=== PATIENT | female | born 1960 | race Caucasian/White ===

== ENCOUNTER 2022-01-03 12:08 | Emergency (ER) | payer BC, SELFPAY ==
--- NOTE | ~2022-01-03 | XR_ITS ---
XR chest 2V DATE: 01/03/2022 12:45 INDICATION: Cough, shortness of breath for 10 days. History of COPD. TECHNIQUE: 2 views COMPARISON: None FINDINGS: Status post sternotomy and probable coronary bypass graft surgery. Possible coronary stent. There is cardiomegaly. Aortic calcification and tortuosity. Left-sided transvenous pacemaker/defibrillator device with lead overlying right ventricular apex. There is pulmonary vascular redistribution which suggests pulmonary venous hypertension, mild congest geeta change. No pulmonary infiltrate or consolidation, pleural effusion or pneumothorax. Diffuse osteopenia. Surgical clips are noted in the upper abdomen on the lateral view. IMPRESSION: Cardiomegaly Status post sternotomy and probable CABG Left pacemaker/defibrillator Reviewed, dictated and finalized at location A.
[2022-01-03 12:18] VITALS: BP 112/69; PULSE 98; RESP 20; TEMP 36.8; O2SAT 93
--- NOTE | 2022-01-03 12:22 | ED.URI ---
HPI - URI/Sore Throat General Chief Complaint: Upper Respiratory Infection Stated Complaint: Runny Nose Time Seen by Provider: 01/03/22 12:22 Source: patient Mode of arrival: ambulatory Limitations: no limitations History of Present Illness HPI Narrative: 61-year-old female with history of COPD, CHF presents with complaint of cold symptoms, cough for 10 days. States that symptoms for started as allergies, then had nasal congestion, cough. Cough is not getting better, now feels short of breath. Patient does not use any inhalers for her COPD. Reports that she weighs herself daily, no weight gain, no concerns for fluid retention. Denies chest pain. All systems reviewed and negative except as noted above. Related Data Home Medications Medication Instructions Recorded Confirmed aspirin 325 mg PO DAILY 01/03/22 01/03/22 carvedilol 01/03/22 empagliflozin [Jardiance] mg 01/03/22 ezetimibe mg 01/03/22 sacubitril-valsartan [Entresto] 01/03/22 spironolactone 01/03/22 Allergies Allergy/AdvReac Type Severity Reaction Status Date / Time Sulfa (Sulfonamide Allergy Verified 10/22/12 19:06 Antibiotics) Review of Systems Review of Systems: CONSTITUTIONAL: Denies fever, chills, or sweats. Reports fatigue. EYES: Denies visual changes, redness, or discharge. ENT: Reports rhinorrhea, congestion, sore throat. Denies otalgia. CARDIOVASCULAR: Denies chest pain, palpitations, or edema. RESPIRATORY: Reports cough or dyspnea. GASTROINTESTINAL: Denies abdominal pain, nausea, vomiting, or diarrhea. GENITOURINARY: Denies dysuria or hematuria. SKIN: Denies rash or itching. MUSCULOSKELETAL: Denies back pain, joint pain, or myalgia. NEUROLOGIC: Denies headache, numbness, or weakness. PSYCHIATRIC: Denies anxiety or depression. All other systems reviewed are negative, except as documented in HPI. PMFSH Comments At time of signature, agree with nursing past medical, surgical, social and family history. There is no relevant family history pertinent to the presenting complaint. Exam Narrative: GENERAL: This is a well-nourished, well-developed patient, in no apparent distress. HEAD: normocephalic, atraumatic. EYES: PERRL. Sclera clear/white. Vision is grossly intact. EARS: External ears normal, auditory canals clear and without drainage, TMs normal without perforation. Hearing grossly intact. NOSE: External nose normal clear nasal drainage, moderate congestion. No sinus tenderness. THROAT: Mucous membranes moist, posterior pharynx clear. NECK: Neck supple, non-tender without lymphadenopathy, masses or thyromegaly. CARDIOVASCULAR: Regular rate and rhythm without murmurs, gallops, or rubs. RESPIRATORY: Lung sounds decreased throughout all lung guy. SKIN: warm, Dry, intact with no suspicious lesions or rash, good texture and turgor. NEURO: awake, alert, and oriented to person, place and time. There were no obvious focal neurologic abnormalities. EXTREMITIES: Normal range of motion to all extremities. Course Course Level of Care: Express Care Visit Reevaluation(s) Reevaluation #1: Patient reports chest tightness, shortness of breath improved after albuterol neb. Lung sounds are still decreased but improved air movement. Date: 01/03/22 Time: 13:39 Vital Signs Vital signs: Vital Signs Temperature 36.8 C 01/03/22 12:18 Pulse Rate 98 01/03/22 12:18 Respiratory Rate 20 01/03/22 12:18 Blood Pressure 112/69 01/03/22 12:18 Pulse Oximetry 93 01/03/22 12:18 Temperature 36.8 C 01/03/22 12:18 Pulse Rate 98 01/03/22 12:18 Respiratory Rate 18 01/03/22 13:14 Blood Pressure 112/69 01/03/22 12:18 Pulse Oximetry 93 01/03/22 12:18 Reviewed MDM - URI/Sore Throat MDM Narrative Medical decision making narrative: Patient is aware of diagnosis, understands and agrees to treatment plan. Anticipatory guidance given. Patient agrees to follow-up as directed and is aware of reasons to seek care at the emergenc
[2022-01-03] MEDS: ALBUTEROL SULFATE NEB 2.5 MG/3 ML INH INHALATION (12:37)
--- NOTE | 2022-01-03 12:41 | PC.NURSE ---
resp tx on hold d/t cxr.
[2022-01-03 13:14] VITALS: RESP 18
[2022-01-03 13:26] VITALS: PULSE 83; RESP 18; O2SAT 93
== END 2022-01-03 13:26 | disposition home or self-care (01) ==
PROVIDERS: Emergency Provider Nurse Practitioner Family; PCP Internal Medicine
DX: J44.1 Chronic obstructive pulmonary disease with (acute) exacerbation (principal); I11.0 Hypertensive heart disease with heart failure; I50.9 Heart failure, unspecified; I25.10 Atherosclerotic heart disease of native coronary artery without angina pectoris; E78.00 Pure hypercholesterolemia, unspecified; Z95.810 Presence of automatic (implantable) cardiac defibrillator
CPT/HCPCS: 71046; 94640; 99213; G0463

== ENCOUNTER 2022-04-15 10:28 | Emergency (ER) | payer BC, SELFPAY ==
[2022-04-15 10:39] VITALS: BP 116/81; PULSE 93; RESP 21; TEMP 36.8; O2SAT 98
--- NOTE | 2022-04-15 10:59 | ED.FEMALEGU ---
HPI - Female Genitourinary General Chief complaint: Urogenital-Female Stated complaint: UTI Time Seen by Provider: 04/15/22 10:57 Source: patient and RN notes reviewed Mode of arrival: ambulatory Limitations: no limitations History of Present Illness HPI Narrative: 61-year-old female presents with concern for 2-week history of low back pain, urine frequency, mild pain with urination. Reports she took Azo last week that helped her low back pain. She denies fever, body aches, nausea, vomiting, abdominal pain, general malaise. She denies history of frequent UTIs. She reports she has been taking Tylenol for pain. MD elicited complaint: UTI Related Data Home Medications Medication Instructions Recorded Confirmed aspirin 325 mg tablet 325 mg PO DAILY 01/03/22 04/15/22 carvedilol 6.25 mg tablet 6.25 mg PO DAILY 01/03/22 04/15/22 empagliflozin 10 mg tablet 10 mg PO DAILY 01/03/22 04/15/22 (Jardiance) sacubitril 24 mg-valsartan 26 mg 1 tablet PO DAILY 01/03/22 04/15/22 tablet (Entresto) spironolactone 25 mg tablet 25 mg PO DAILY 01/03/22 04/15/22 lovastatin 40 mg tablet 40 mg PO DAILY 04/15/22 04/15/22 Allergies Allergy/AdvReac Type Severity Reaction Status Date / Time atorvastatin [From Lipitor] Allergy Rash Verified 04/15/22 10:46 Sulfa (Sulfonamide Allergy Rash Verified 04/15/22 10:46 Antibiotics) Review of Systems Review of Systems: CONSTITUTIONAL: Denies malaise, chills, sweats, or fever. CARDIOVASCULAR: Denies chest pain, palpitations, or edema. RESPIRATORY: Denies cough or dyspnea. GASTROINTESTINAL: Denies abdominal pain, nausea, vomiting, diarrhea GENITOURINARY: Reports dysuria, frequency. Denies urgency, suprapubic pressure. Denies flank pain or hematuria. SKIN: Denies rash or itching. MUSCULOSKELETAL: Reports mild lower back pain. Denies myalgia. All systems reviewed & are unremarkable except as noted in HPI and below PMFSH Comments At time of signature, agree with nursing past medical, surgical, social and family history. There is no relevant family history pertinent to the presenting complaint Exam Narrative: GENERAL: Well-appearing, well-nourished, and in no acute distress. HEAD: Normocephalic. EYES: PERRLA, conjunctivae clear. NECK: Supple. No lymphadenopathy CHEST: Clear to auscultation. No respiratory distress. HEART: Regular rate and rhythm. ABDOMEN: Soft, nontender upon palpation, nondistended, no guarding. Mild right CVA tenderness SKIN: Warm, dry, no rash. NEURO: Alert and oriented x3. PSYCH: Normal mood and affect Course Course Emergency Course: Discussed UA findings with patient, discussed performing a urine culture for further information. Discussed option of starting antibiotic now pending culture, or wait for culture results to determine if antibiotic is necessary. Through shared decision making, patient decided she would rather wait for culture results before starting antibiotic. Patient advised she should follow-up with her primary care doctor for further evaluation if her urine culture is clean. Patient is aware of diagnosis, understands and agrees to treatment plan. Anticipatory guidance given. Patient agrees to follow-up as directed and is aware of reasons to seek care at the emergency department. Portions of this record may have been created with voice recognition software Level of Care: Express Care Visit Vital Signs Vital signs: Reviewed. MDM - Female Genitourinary MDM Narrative Medical decision making narrative: Exam findings and UA show no acute concerns or changes; patient is non-toxic appearing and is in no distress. Patient is appropriate for outpatient treatment and follow-up. Differential Diagnosis Differential diagnosis: Likely urinary tract infection and cystitis Critical Care Time Critical Care Time Critical Care Time: No Discharge Plan Discharge Clinical Impression: Hematuria Patient Disposition: Home, Self-Care Condition: Stable
== END 2022-04-15 11:10 | disposition home or self-care (01) ==
PROVIDERS: Emergency Provider Nurse Practitioner; PCP Internal Medicine
DX: R31.9 Hematuria, unspecified (principal); Z79.82 Long term (current) use of aspirin
CPT/HCPCS: 81003; 87086; 99213; G0463